=== PATIENT | female | born 1985 | race Caucasian/White ===

== ENCOUNTER 2019-08-07 06:36 | Emergency (ER) | payer BC, SELFPAY ==
--- NOTE | ~2019-08-07 | CT_ITS ---
EXAMINATION: CT abdomen pelvis w con DATE: 08/07/2019 07:59 INDICATION: Low abdominal pain. Nausea, vomiting, and diarrhea. TECHNIQUE: Computed tomography (CT) of the abdomen and pelvis was performed with 100 mL Omnipaque 350 intravenous contrast. Automated exposure control and iterative reconstruction technique were employe d. The dose-length product was 320.03 mGy-cm. COMPARISON: None. FINDINGS: The visualized portions of the lung bases demonstrate minimal atelectasis. There are small pleural effusions. The heart size is normal. No pericardial effusion. The liver demonstrates periport al edema. The gallbladder, spleen, pancreas, adrenal glands, and kidneys are normal. The uterus is en larged and contains multiple fibroids. There is wall thickening of the ascending colon, descending co zunilda, and rectosigmoid, consistent with colitis. There are no dilated loops of bowel. There are no pat hologically enlarged lymph nodes. There is a small volume of ascites. There is mild lumbar spondylosi s. IMPRESSION: 1. Colitis. 2. Small volume of ascites. 3. Small pleural effusions. 4. Uterine fibroids. Reviewed, dictated and finalized at location A.
--- NOTE | 2019-08-07 06:38 | ED.ABDPAIN ---
HPI - Abdominal Pain General Chief Complaint: Abdominal Pain Stated Complaint: stomach issue Time Seen by Provider: 08/07/19 06:38 Source: patient Mode of arrival: ambulatory Limitations: no limitations History of Present Illness HPI narrative: Patient is a 33-year-old female who presents for evaluation of abdominal pain. Pain is located throughout the patient's abdomen, currently dull, aching in nature, mild. Patient does report intermittent abdominal pain over the past 48 to 72 hours, without much improvement which is why she sought care in the apartment. Patient has been nauseated and vomiting. She reports diarrhea which is green sometimes have spots of red in it. She denies any black or tarry stool. Patient also reports constipation and having to strain to have a bowel movement. Patient denies any urinary symptoms. No history of chronic abdominal pain. Patient's significant other has been well without symptoms. Patient does report mild abdominal distention. Related Data Home Medications Medication Instructions Recorded Confirmed norethindrone-e.estradiol-iron [Lo tablet 08/07/19 Loestrin Fe] Allergies Allergy/AdvReac Type Severity Reaction Status Date / Time No Known Allergies Allergy Verified 08/07/19 06:53 Review of Systems Review of Systems: Narrative: CONSTITUTIONAL: Reports subjective fever ENT: Denies rhinorrhea, congestion, sore throat, or otalgia. CARDIOVASCULAR: Denies chest pain, palpitations, or edema. RESPIRATORY: Denies cough or dyspnea. GASTROINTESTINAL: Reports abdominal pain, nausea, vomiting, diarrhea GENITOURINARY: Denies dysuria or hematuria. SKIN: Denies rash or itching. MUSCULOSKELETAL: Denies back pain, joint pain, or myalgia. NEUROLOGIC: Denies headache, numbness, or weakness. PSYCHIATRIC: Reports history of anxiety PMFSH Past Medical History Medical History (Updated 08/07/19 @ 09:09 by Susanne Manzo MD) Anxiety Uterine fibroid Surgical History Surgical History (Updated 08/07/19 @ 06:52 by Susanne Manzo MD) History of laparotomy Social History Social History Smoking status: Never smoker Alcohol intake: current Exam Narrative: Exam Narrative: GENERAL: Awake, alert, conversant HEAD: Normocephalic, atraumatic. EYES: PERRLA and EOMI. ENT: Nares clear, no rhinorrhea or epistaxis. Mucous membranes moist. NECK: Supple. CHEST: No respiratory distress, breathing even and non labored HEART: Regular rate, sinus rhythm ABDOMEN:Non distended, mild tenderness, lower abdomen, non rigid, no guarding, no epigastric or RUQ tenderness EXTREMITIES: Normal range of motion. No edema. SKIN: Warm, dry, no rash. NEURO:No focal deficits. Alert and oriented x3 Course Vital Signs Vital signs: Vital Signs Temperature 37.1 C 08/07/19 06:49 Pulse Rate 90 08/07/19 06:49 Respiratory Rate 14 08/07/19 06:49 Blood Pressure 109/76 08/07/19 06:49 Pulse Oximetry 100 08/07/19 06:49 Temperature 37.1 C 08/07/19 06:49 Pulse Rate 69 08/07/19 08:11 Respiratory Rate 18 08/07/19 08:11 Blood Pressure 102/65 08/07/19 08:11 Pulse Oximetry 100 08/07/19 08:11 MDM - Abdominal Pain MDM Narrative Medical decision making narrative: Patient presented for evaluation of abdominal pain. At the time of initial assessment, ABCs are intact and vital signs are stable. Physical exam is notable for mild lower abdominal tenderness. IV access obtained and labs are drawn. Laboratory results show no severe leukocytosis. Very mild anemia. Very mild hypokalemia. No UTI. No elevation in lipase that be consistent with pancreatitis. CT scan with evidence of colitis. Patient also has some small pleural effusions evidence of ascites which is very abnormal. She has no history of liver pathology, no transaminitis, no respiratory distress. Spoke with the primary care physician regarding these findings so that the patien
[2019-08-07 06:49] VITALS: BP 109/76; PULSE 90; RESP 14; TEMP 37.1; O2SAT 100
[2019-08-07 06:59] LABS: Basophils Percent Auto 0.6 % (0.2-1.2); Eosinophils Percent Auto 0.2 % (0-4.4); Hematocrit 35.2 % (37.0-47.0); Hemoglobin 11.6 g/dL (12.0-15.0); Immature Granulocyte Absolute 0.01 K/mm3 (0.00-0.031); Immature Granulocyte Percent A 0.2 % (0-0.5); Lymphocytes Absolute Auto 0.81 K/mm3 (0.9-3.2); Lymphocytes Percent Auto 15.8 % (18.3-44.2); Mean Corpuscular Hemoglobin 30.3 pg (26-34); Mean Corpuscular Volume 91.9 fl (80-100); Mean Platelet Volume 10.2 fl (7.4-10.4); Monocytes Absolute Auto 0.4 K/mm3 (0.1-0.6); Monocytes Percent Auto 7.8 % (2.6-8.5); Neutrophils Absolute Auto 3.9 K/mm3 (1.3-6.7); Neutrophils Percent Auto 75.4 % (45.5-73.1); Platelet Count Result 140 k/mm3 (150-375); Red Blood Count 3.83 M/mm3 (4.2-5.4); Red Cell Distribution Width 12.7 % (11.5-14.5); White Blood Count 5.1 K/mm3 (4.5-10.0)
--- NOTE | 2019-08-07 07:01 | PC.NURSE ---
pt in restroom to attempt for urine sample
[2019-08-07] MEDS: SODIUM CHLORIDE 0.9% IV 1,000 ML 999 ML IV CONT (07:08)
[2019-08-07] MEDS: ONDANSETRON INJ 4 MG/2 ML VIAL IV PUSH (07:09)
[2019-08-07 07:11] LABS: Alanine Aminotransferase 11 U/L (4-35); Albumin Level 4.1 g/dL (3.5-5.1); Alkaline Phosphatase 50 U/L (38-126); Aspartate Amino Transferase 17 U/L (14-36); Bilirubin,Total 0.4 mg/dL (0.2-1.3); Blood Urea Nitrogen 8 mg/dL (7-17); Calcium 8.6 mg/dL (8.4-10.2); Carbon Dioxide 26 mmol/L (22-30); Chloride 103 mmol/L (98-107); Estimated Glomerular Filt Rate > 60; Glucose 109 mg/dL (65-105); Lipase 18 U/L (23-300); Sodium 137 mmol/L (137-145)
[2019-08-07] MEDS: DICYCLOMINE HCL INJ 20 MG/2 ML VIAL IM (07:13)
[2019-08-07 07:26] LABS: Add Urine Microscopic? YES; Appearance Urine Clear (Clear); Bilirubin Urine Negative (Negative); Blood Urine 2+ (Negative); Color Urine Yellow (Yellow); Glucose Urine UA Negative (Negative); Ketones Urine Negative (Negative); Leukocyte Esterase Ur Negative LEU/UL (Negative); Mucus Urine Moderate /lpf; Nitrate Urine Negative (Negative); Protein Urine 2+ mg/dL (Negative); Specific Grav Ur 1.018 (1.001-1.035); Squamous Epithelial Cell Urine Moderate /hpf (Few); Urobilinogen Urine Negative mg/dL (<2.0)
[2019-08-07 08:11] VITALS: BP 102/65; PULSE 69; RESP 18; O2SAT 100
[2019-08-07] MEDS: POTASSIUM CHLORIDE 20 MEQ PACKET (FOR LIQUID) 40 MEQ PO (09:15)
[2019-08-07 09:18] VITALS: BP 101/66; PULSE 74; RESP 18; TEMP 38.7; O2SAT 100
== END 2019-08-07 09:29 | disposition home or self-care (01) ==
PROVIDERS: Emergency Provider Emergency Medicine; PCP Family Medicine
DX: K52.9 Noninfective gastroenteritis and colitis, unspecified (principal); D25.9 Leiomyoma of uterus, unspecified
CPT/HCPCS: 36415; 74177; 80053; 81001; 81025; 83690; 85025; 96361; 96365; 96372; 96375; 99284; A9270; J0131; J0500; J2405; J7030; Q9967

== ENCOUNTER 2019-09-03 15:14 | Outpatient (CLI) | payer BC, SELFPAY ==
--- NOTE | ~2019-09-03 | US_ITS ---
EXAMINATION: US pelvic complete EXAM DATE: 09/03/2019 15:59 INDICATION: Fibroid. TECHNIQUE: Pelvic transabdominal sonogram was performed. There are multiple grayscale and Doppler im ages available for interpretation. There is no prior study for comparison. Correlation was made with CT scan 08/07/2019. FINDINGS: Uterus measures 10.4 x 5.2 x 7.2 cm, with fibroid(s). Largest is identified posteriorly, m easuring 4.4 x 4.1 x 4.0 cm. Uterus is retroverted. Endometrial stripe measures 6 mm, within normal l imits. There is no free pelvic fluid. Right adnexa: The ovary measures 3.6 x 2.7 x 2.5 cm and is morphologically normal. Ovarian vascular f low confirmed. Left adnexa: The ovary measures 4.3 x 2.6 x 2.8 cm and is morphologically normal. Ovarian vascular fl ow confirmed. IMPRESSION: 1. Fibroid uterus. Reviewed, dictated and finalized at location A. IMPRESSION: 1. Fibroid uterus.
[2019-09-03 16:34] LABS: Basophils Percent Auto 0.5 % (0.2-1.2); Eosinophils Absolute Auto 0.1 K/mm3 (0-0.3); Eosinophils Percent Auto 1.8 % (0-4.4); Hematocrit 37.9 % (37.0-47.0); Hemoglobin 12.2 g/dL (12.0-15.0); Immature Granulocyte Absolute 0.01 K/mm3 (0.00-0.031); Immature Granulocyte Percent A 0.2 % (0-0.5); Lymphocytes Absolute Auto 2.06 K/mm3 (0.9-3.2); Mean Corpuscular HGB Conc 32.2 g/dl (32-36); Mean Corpuscular Hemoglobin 30.4 pg (26-34); Mean Corpuscular Volume 94.5 fl (80-100); Mean Platelet Volume 10.1 fl (7.4-10.4); Monocytes Absolute Auto 0.5 K/mm3 (0.1-0.6); Neutrophils Absolute Auto 3.5 K/mm3 (1.3-6.7); Neutrophils Percent Auto 56.5 % (45.5-73.1); Platelet Count Result 193 k/mm3 (150-375); Red Blood Count 4.01 M/mm3 (4.2-5.4); Red Cell Distribution Width 12.7 % (11.5-14.5); White Blood Count 6.3 K/mm3 (4.5-10.0)
[2019-09-03 16:46] LABS: Alanine Aminotransferase 13 U/L (4-35); Albumin Level 4.6 g/dL (3.5-5.1); Alkaline Phosphatase 42 U/L (38-126); Aspartate Amino Transferase 19 U/L (14-36); Bilirubin,Total 0.2 mg/dL (0.2-1.3); Blood Urea Nitrogen 11 mg/dL (7-17); Calcium 9.1 mg/dL (8.4-10.2); Carbon Dioxide 26 mmol/L (22-30); Chloride 101 mmol/L (98-107); Estimated Glomerular Filt Rate > 60; Glucose 82 mg/dL (65-105); Potassium 3.9 mmol/L (3.4-5.0); Sodium 136 mmol/L (137-145)
== END 2019-09-03 15:15 | disposition home or self-care (01) ==
LOC: ANHIMG 15:18
PROVIDERS: PCP Family Medicine; Visit Provider Family Medicine
DX: D25.9 Leiomyoma of uterus, unspecified (principal); K52.9 Noninfective gastroenteritis and colitis, unspecified; Z86.018 Personal history of other benign neoplasm
CPT/HCPCS: 36415; 76856; 80053; 84443; 85025

== ENCOUNTER 2021-05-20 10:55 | Outpatient (CLI) | payer OTHER, SELFPAY ==
--- NOTE | ~2021-05-20 | US_ITS ---
EXAMINATION: US OB <=14 wk fetus w TV DATE: 05/20/2021 12:27 INDICATION: First trimester dating and viability assessment TECHNIQUE: Real-time pelvic transabdominal and transvaginal ultrasound was performed. COMPARISON: 09/03/2019 FINDINGS: The uterus measures 12.1 x 8.9 x 8.6 cm. There is a small subchorionic hematoma. Uterine fi broids are noted which measure 1.6 x 1.6 x 1.5 cm and 2.2 x 1.9 x 2.3 cm. There is an intrauterine g estational sac. A yolk sac is identified. heart motion is identified measuring 111 beats per mi nute (bpm) by M-mode Doppler. The crown rump length measures 4 mm , which correlates with an es timated gestational age of 6 weeks and 0 day(s) (+/-) 4 day(s). The right ovary measures 3.3 x 2.3 x 1.8 cm. The left ovary measures 3.9 x 2.3 x 2.0 cm. There is nor mal vascular flow in the ovaries. There is no free fluid in the pelvis. IMPRESSION: 1. Live intrauterine with an estimated gestational age of 6 weeks and 0 day(s) (+/-) 4 day( s) and an estimated delivery date of 01/13/2022. Reviewed, dictated and finalized at location F. A CONSULTANT IMPRESSION: 1. Live intrauterine with an estimated gestational age of 6 weeks and 0 day(s) (+/-) 4 day(s) and an estimated delivery date of 01/13/2022.
== END 2021-05-20 10:56 | disposition home or self-care (01) ==
LOC: ANHIMG 10:58
PROVIDERS: PCP Family Medicine; Visit Provider Student in an Organized Health Care Education/Training Program
DX: Z34.91 Encounter for supervision of normal pregnancy, unspecified, first trimester (principal); Z3A.01 Less than 8 weeks gestation of pregnancy
CPT/HCPCS: 76801; 76817

== ENCOUNTER → 2021-06-21 09:09 | Outpatient (REF) | payer OTHER, SELFPAY | LOC: ANHLAB 09:09 | PROVIDERS: PCP Nurse Practitioner Family; Visit Provider Nurse Practitioner | DX: R22.9 Localized swelling, mass and lump, unspecified (principal) | CPT/HCPCS: 88304 ==

== ENCOUNTER 2021-09-06 04:31 | Observation (INO) | payer OTHER, SELFPAY ==
[2021-09-06 04:52] VITALS: BP 109/64; PULSE 88
--- NOTE | 2021-09-06 05:04 | PC.NURSE ---
[id number]- called Dr. La- informed of pt admission for lower abdominal pain that started Sunday. she traveled via airplane Sunday and came back late last night. she states that across lower abd she feels a pulling sensation. no bleeding. pt states that she has fibroids that have grown during this . orders received to collect UA, TOCO, and cervical exam. heart tones doppled at 150-155.
[2021-09-06 05:32] LABS: Add Urine Microscopic? YES; Appearance Urine Clear (Clear); Bilirubin Urine 1+ (Negative); Blood Urine Negative (Negative); Color Urine Yellow (Yellow); Glucose Urine UA Negative (Negative); Ketones Urine Negative (Negative); Leukocyte Esterase Ur Negative LEU/UL (NEGATIVE); Nitrate Urine Negative (Negative); Protein Urine Negative (Negative); Urobilinogen Urine 0.2 mg/dL (<2.0)
[2021-09-06 05:34] LABS: Bacteria Urine Trace /hpf; Mucus Urine Rare /lpf; RBC Urine 0-2 /hpf (0-2); Squamous Epithelial Cell Urine Many /hpf (Few); WBC Urine 0-3 /hpf (0-3)
--- NOTE | 2021-09-06 05:49 | PC.NURSE ---
called Dr. La- updated on pt. UA results negative. - cervical exam closed. - irritability noted with TOCO. pt not feeling contractions. pt PO hydrating while here. d/c orders received. pt has ov this .
[2021-09-06 05:57] VITALS: BMI 29.5
--- NOTE | 2021-09-27 06:59 | PM.OBTRLD ---
OB - Triage/Final Diagnosis Visit Information Date of evaluation: 09/06/21 Reason for evaluation: other (lower abdominal pain) Comments/Additional reasons for admission: I have assessed the risk for this patient, Dari Alicea Leeanna, and determined that she would benefit from observation care. Evaluation Cervical effacement (%): 0 Laboratory results: Laboratory Tests 09/06/21 05:22 Urine Color Yellow Urine Appearance Clear Urine pH 6.0 Ur Specific [place] 1.020 Urine Protein Negative Urine Glucose (UA) Negative Urine Ketones Negative Ur Blood (Man) Negative Urine Nitrate Negative Urine Bilirubin 1+ H Urine Urobilinogen 0.2 Ur Leukocyte Esterase Negative Urine RBC 0-2 Urine WBC 0-3 Ur Squamous Epith Cells Many H Urine Bacteria Trace Urine Mucus Rare Final Diagnosis (1) Uterine irritability: Code(s): N85.8 - Other specified noninflammatory disorders of uterus Status: Acute
== END 2021-09-06 06:11 | disposition home or self-care (01) ==
PROVIDERS: Admitting Provider Obstetrics & Gynecology; PCP Nurse Practitioner Family; Visit Provider Obstetrics & Gynecology
DX: O26.899 Other specified pregnancy related conditions, unspecified trimester (principal); R10.30 Lower abdominal pain, unspecified; Z3A.00 Weeks of gestation of pregnancy not specified
CPT/HCPCS: 81001; G0378; G0379

== ENCOUNTER 2021-12-31 02:46 | Inpatient (IN) | payer OTHER, SELFPAY ==
[2021-12-31] VITALS (158 sets, daily range): BP systolic 89–136; BP diastolic 37–107; PULSE 46–139; RESP 15–16; TEMP 36–37.2; O2SAT 83–100; BMI 35.1
--- NOTE | 2021-12-31 03:26 | LDADM ---
This patient, Dari Durán, was admitted to Labor/Delivery/Recovery 105 on 12/31/21 at 02:46. Plans for labor, pain management and were discussed with patient. Patient/family oriented to hospital policies and general routines including ID bracelet, bed and alarms, visiting hours, pain management, procedures, bathroom and other care routines, personal items, smoking policy, room service/diet and guest tray routines, security routines, and visiting hours. Patient/Family are encouraged to report perceived risks to care and to ask questions if they do not understand what they are told or what they should do. See OBIX for further documentation.
[2021-12-31 03:48] LABS: Basophils Percent Auto 0.3 % (0.2-1.2); Eosinophils Absolute Auto 0.1 K/mm3 (0-0.3); Eosinophils Percent Auto 0.8 % (0-4.4); Hematocrit 33.6 % (37.0-47.0); Hemoglobin 11.2 g/dL (12.0-15.0); Immature Granulocyte Absolute 0.05 K/mm3 (0.00-0.031); Immature Granulocyte Percent A 0.5 % (0-0.5); Lymphocytes Absolute Auto 1.38 K/mm3 (0.9-3.2); Lymphocytes Percent Auto 14.5 % (18.3-44.2); Mean Corpuscular HGB Conc 33.3 g/dl (32-36); Mean Platelet Volume 10.9 fl (7.4-10.4); Monocytes Absolute Auto 0.6 K/mm3 (0.1-0.6); Monocytes Percent Auto 6.7 % (2.6-8.5); Neutrophils Absolute Auto 7.4 K/mm3 (1.3-6.7); Neutrophils Percent Auto 77.2 % (45.5-73.1); Platelet Count Result 183 k/mm3 (150-375); Red Blood Count 3.86 M/mm3 (4.2-5.4); Red Cell Distribution Width 16.9 % (11.5-14.5); White Blood Count 9.5 K/mm3 (4.5-10.0)
[2021-12-31] MEDS: LACTATED RINGERS 1,000 ML 125 ML IV CONT ×4 (05:56→20:57)
[2021-12-31] MEDS: OXYTOCIN 30 UNITS/NS 500 ML 30 UNITS/500 ML BAG 6 UNITS IV CONT (05:56)
--- NOTE | 2021-12-31 09:07 | PM.IMHP ---
H&P: HPI History of Present Illness Date/Time: 12/31/21 09:07 Chief Complaint: Leaking of fluid Narrative: She is 40 2 by edc of 01/11/22 by LMP 04/06/22 consistent with 6 week ultrasound. She presented with complaints of leaking of fluid, clear at 1245. Occasional contractions. PNC significant for large fibroid uterus, marginal cord insertion on ultrasound in September. Also LGA 94% by last ultrasound. Labs reviewed. GBS neg. Review of Systems Review of Systems: All systems reviewed & are unremarkable except as noted in HPI and below Constitutional: Constitutional: Reports no additional constitutional complaints and Denies headache(s) Eyes: Eyes: Denies spots in vision ENT: Reports system reviewed and no additional complaints, except as documented and Denies headache(s) Cardiovascular: Cardiovascular: Denies chest pain and Denies dyspnea Respiratory: Respiratory: Denies dyspnea Gastrointestinal: Gastrointestinal: Reports no additional gastrointestinal complaints Genitourinary: Genitourinary: Reports amenorrhea Musculoskeletal: Musculoskeletal: Reports no additional musculoskeletal complaints Integumentary/Breasts: Skin/Breast: Denies breast mass and Denies rash Neurologic: Denies headache(s) Psychiatric: Psychiatric: Reports no additional psychiatric complaints PMFSH Past Medical History Medical History Acne (~2014) Anxiety Normal Pap smear (~05/13/20) Uterine fibroid (~2013) Surgical History Surgical History History of laparotomy (~06/18/13) ~ 15 cm fibroid removed while in [place] Family History Family History Father Hypertension Diabetes mellitus Social History Social History Smoking status: Never smoker Second hand tobacco smoke exposure: No Alcohol intake: never Substance use: never 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[employer] Gender identity (if verbalized by the patient): Female Spiritual care concerns: No Meds Home Medications and Allergies Home Medications Medication Instructions Recorded Confirmed Type prenat.vits,char,uzw-mvzf-mdwdo 1 tablet PO DAILY 05/13/20 04/28/21 History cholecalciferol (vitamin D3) 50 50 mcg PO DAILY 05/31/20 04/28/21 History mcg (2,000 unit) capsule buspirone 5 mg tablet See Rx Instructions .Route 01/27/21 04/28/21 Rx .COMPLEX #60 tabs cetirizine 10 mg capsule (Zyrtec) 10 mg PO DAILY PRN 06/07/21 History ferrous sulfate 325 mg (65 mg 325 mg PO DAILY 06/14/21 History iron) tablet clindamycin phosphate 1 % topical See Rx Instructions .Route 11/18/21 Rx swab .COMPLEX #60 swabs Allergies Allergy/AdvReac Type Severity Reaction Status Date / Time No Known Allergies Allergy Verified 12/27/21 08:55 Vital Signs Vital Signs - 24 hr 12/31/21 03:26 12/31/21 05:58 12/31/21 06:00 Temperature Pulse Rate 109 H 105 H Blood Pressure 103/72 108/66 Pulse Oximetry Oxygen Delivery Room Air 12/31/21 06:25 12/31/21 06:15 12/31/21 06:30 Temperature 97 F L Pulse Rate 86 Blood Pressure 119/74 Pulse Oximetry 100 Oxygen Delivery 12/31/21 07:00 12/31/21 07:30 12/31/21 08:06 Temperature 96.9 F L Pulse Rate 84 87 Blood Pressure 108/69 106/80 Pulse Oximetry Oxygen Delivery 12/31/21 08:08 12/31/21 08:31 Temperature Pulse Rate 106 H 81 Blood Pressure 121/75 107/79 Pulse Oximetry Oxygen Delivery Exam Const: General: no acute distress Eyes: General: appearance normal, both eyes and all related structures Neck: Neck: normal visual inspection Resp: Effort & Inspection: normal respiratory effort Auscultation: clear to auscultation bilaterally Cardio: Rate: regular rate Rhythm: regular rhythm GI: Other: Gravid no fundal tenderness no right u
--- NOTE | 2021-12-31 11:16 | WPDANESEPP ---
Anes - Eval Pre Procedure Procedure: labor epidural Date/Time: 12/31/21 11:16 Surgeon: komal Preop Diagnosis: pain during labor Pre Op Diagnosis: SROM Patient Data Age: 36 Gender: F Height: 1.6 m Weight: 90 kg Last Vital Signs Temp 36.1 C L 12/31/21 10:00 Pulse 91 12/31/21 11:15 BP 109/55 L 12/31/21 11:15 Pulse Ox 100 12/31/21 06:25 O2 Del Method Room Air 12/31/21 03:26 Allergies Allergy/AdvReac Type Severity Reaction Status Date / Time No Known Allergies Allergy Verified 12/27/21 08:55 Home Medications Medication Instructions Recorded Confirmed Type prenat.vits,char,enr-bhxp-xwlya 1 tablet PO DAILY 05/13/20 04/28/21 History cholecalciferol (vitamin D3) 50 50 mcg PO DAILY 05/31/20 04/28/21 History mcg (2,000 unit) capsule buspirone 5 mg tablet See Rx Instructions .Route 01/27/21 04/28/21 Rx .COMPLEX #60 tabs cetirizine 10 mg capsule (Zyrtec) 10 mg PO DAILY PRN 06/07/21 History ferrous sulfate 325 mg (65 mg 325 mg PO DAILY 06/14/21 History iron) tablet clindamycin phosphate 1 % topical See Rx Instructions .Route 11/18/21 Rx swab .COMPLEX #60 swabs Laboratory Tests 12/31/21 12/31/21 12/31/21 03:14 03:14 03:14 WBC 9.5 K/mm3 K/mm3 (4.5-10.0) RBC 3.86 M/mm3 L M/mm3 (4.2-5.4) Hgb 11.2 g/dL L g/dL (12.0-15.0) Hct 33.6 % L % (37.0-47.0) MCV 87.0 fl fl (80-100) MCH 29.0 pg pg (26-34) MCHC 33.3 g/dl g/dl (32-36) RDW 16.9 % H % (11.5-14.5) Plt Count 183 k/mm3 k/mm3 (150-375) MPV 10.9 fl H fl (7.4-10.4) Immature Gran % (Auto) 0.5 % % (0-0.5) Neut % (Auto) 77.2 % H % (45.5-73.1) Lymph % (Auto) 14.5 % L % (18.3-44.2) [place] % (Auto) 6.7 % % (2.6-8.5) Eos % (Auto) 0.8 % % (0-4.4) Baso % (Auto) 0.3 % % (0.2-1.2) Lymph # (Auto) 1.38 K/mm3 K/mm3 (0.9-3.2) [place] # (Auto) 0.6 K/mm3 K/mm3 (0.1-0.6) Eos # (Auto) 0.1 K/mm3 K/mm3 (0-0.3) Baso # (Auto) 0.0 K/mm3 K/mm3 (0.0-0.1) Abs Immat Gran (auto) 0.05 K/mm3 H K/mm3 (0.00-0.031) Absolute Neuts (auto) 7.4 K/mm3 H K/mm3 (1.3-6.7) Absolute Nucleated RBC 0.0 K/mm3 K/mm3 (0.0-0.012) Nucleated RBC % 0.0 % % (0.0-0.2) RPR Pending Blood Type O Positive Antibody Screen Negative Patient hx anesthesia problems: none Family hx anesthesia problems: none Results Review: All pre-operative results and documents have been reviewed as part of the pre-operative evaluation. 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
--- NOTE | 2021-12-31 12:20 | PM.OBPNLAB ---
Pain Control Date/time seen: 12/31/21 0900 fht 145, ctx q 2-4, isolated deceleration, cat 2. Continue pitocin.
[2021-12-31] MEDS: AMPICILLIN 2 GM/NS 100 ML 2 GM/100 ML BAG IVPB (18:53)
[2021-12-31] MEDS: SODIUM CHLORIDE 0.9% IV 300 ML 600 ML I-UTERINE (19:24)
[2021-12-31] MEDS: OXYTOCIN 30 UNITS/NS 500 ML 30 UNITS/500 ML BAG 125 UNITS IV CONT (22:18)
[2021-12-31] MEDS: miSOPROStol 200 MCG TABLET 800 MCG RECTAL (22:22)
--- NOTE | 2021-12-31 22:33 | P.PCNOB_ITS ---
OB - Delivery Note Procedure Delivery date: 12/31/21 Procedure: Patient is a 36-year-old now who presented to labor and delivery on the manager testing of 12/31/2021 at 38 weeks 3 days gestation with complaints of leakage of fluid at approximately 12:45 a.m. Patient was noted to be grossly ruptured at time of presentation and was admitted to labor and delivery. Induction of labor was started with Pitocin. Pitocin was slowly titrated throughout the morning. Patient made little cervical change for several hours. An IUPC was placed for monitoring and pitocin was continued. She eventually began to make cervical change. Patient became uncomfortable and requested an epidural for pain management which was placed without difficulty. Patient continued to make slow, progressive cervical change. Antibiotics were started for prolonged rupture of membranes. Deep variable decelerations were noted on EFM. An amnioinfusion was started. An FSE was placed as well. Patient progressed to fully dilated at 7:57 p.m. Patient was encouraged to push and found to be pushing well. She was prepped and draped for delivery. At 9:51 p.m., patient delivered infant head atraumatically and without difficulty in KRISTOFER presentation. Occiput restituted to maternal left side. With subsequent push, the 's neck, shoulders, and rest of body delivered without difficulty. was weakly crying. 's nose and mouth were suctioned with bulb suction. Infant was placed on maternal abdomen where care was assumed by awaiting nursing staff. Delayed cord clamping was performed for approximately 60 seconds. The cord was clamped and cut. A segment of cord was collected for cord gases. Cord blood was collected. The placenta was delivered spontaneously and intact. Uterine fundus was noted to be firm with massage. On inspection, a first-degree perineal laceration as well as a right labial laceration were noted. These lacerations were repaired with 2-0 and 3-0 Vicryl in the usual fashion. Excellent hemostasis was noted. Rest of vaginal tissue was, however, edematous. Straight catheterization was performed with return of approximately 50 cc of concentrated urine. Due to large fibroid uterus, Cytotec 800 mcg [place]. was administered prophylactically. Estimated blood loss for entire delivery was 350 cc. The was a live-born female , Apgars 8 and 9, weighing 7 lbs. 7 oz. Both mother and baby doing well at end of delivery. Induction method: Per Pitocin Protocol Delivery monitor: External FHT, External Uterine, Internal FHT and Internal Uterine Route of delivery: Laceration Description: Perineal - 1st Degree and Labial (right) Delivery repair: vicryl (2-0 and 3-0) Specimen: Yes (cord blood and cord gases) Quantitative Blood Loss (ml): 350 Anesthesia type: Epidural Disposition: Floor Complications: No immediate complications Baby Date of : 12/31/21 Time of : 21:51 Weeks of gestation at delivery: 38 (38.3) Infant gender: Female Weight (pounds): 7 Weight (ounces): 7 presentation: vertex position: Left Occiput Anterior Placenta delivery description: Spontaneous Cord Vessel Description: 3 Vessels and Delayed Cord Clamping (x60s) score one minute: 8 score five minutes: 9 AMG Delivery Billing Delivery Delivery: Delivery Charge
[2021-12-31] MEDS: IBUPROFEN 600 MG TABLET PO (23:10)
[2021-12-31] MEDS: BENZOCAINE 20% AER SPR (*SP) 56 GM CAN 1 SPRAY TOPICAL (23:12)
[2021-12-31] MEDS: WITCH HAZEL 40 PADS 1 PAD TOPICAL (23:12)
[2022-01-01 00:40] VITALS: BP 121/69; PULSE 86; RESP 18; TEMP 37; O2SAT 96
[2022-01-01] MEDS: ACETAMINOPHEN 325 MG TABLET 650 MG PO ×3 (01:10→15:49)
--- NOTE | 2022-01-01 01:40 | OBPPTRN ---
01/01/22 at 0028 Patient transferred to post room #288 with baby. Support person present. Oriented to unit, room, information board, rooming in, admission packet and security measures. Patient verbalizes understanding.
[2022-01-01 03:30] VITALS: BP 108/60; PULSE 91; RESP 18; TEMP 36.8; O2SAT 96
[2022-01-01] MEDS: IBUPROFEN 600 MG TABLET PO ×3 (04:52→19:11)
[2022-01-01 05:01] LABS: Hematocrit 33.4 % (37.0-47.0); Hemoglobin 10.6 g/dL (12.0-15.0)
[2022-01-01] MEDS: MULTIVIT/MIN/PREN/FOL AC/IRON TABLET 1 TAB PO (07:58)
[2022-01-01] MEDS: DOCUSATE SODIUM 100 MG CAPSULE PO ×2 (07:58→15:49)
[2022-01-01 08:00] VITALS: BP 118/79; PULSE 67; RESP 18; TEMP 36.6; O2SAT 99
--- NOTE | 2022-01-01 08:40 | PC.NURSE ---
Breast pump provided due to ineffective feeding with a nipple shield. Instructions given on cleaning, care, usage, that there should be no pain, pumping schedule for milk production, collection, and storage of human milk. Parents are encouraged to record pumping schedule on the [feeding sheet/pumping log]. Patient was assessed for correct placement, flange size, to pump for comfort and nipple stretching/stimulation for adequate milk production every 3 hours (8 times in 24 hours). Mother voiced understanding of the education shared along with mom and baby guide for additional resource information.
--- NOTE | 2022-01-01 09:57 | PM.OBPNVD ---
OB - PN: Subj Subjective Date/time seen: 01/01/22 09:57 Interval history: Perineal pain moderate. She is using ice pack. Patient comments: tolerating diet and other (Decreasing lochia.) baby status: doing well and nursing well feeding status: breast and bottle feeding OB - PN: Obj Data Labs CBC & Chem 7: 01/01/22 04:56 Labs: Laboratory Results - last 24 hr 01/01/22 04:56 Hgb 10.6 L Hct 33.4 L OB - PN A/P Plan day: 1 Plan: routine care Comments: Patient doing well. Offered stronger analgesic if pain persist at moderate. Recommend sitz bath. Routine care. Time Spent With Patient Time: Total time spent is greater than 50% in coordination of care (as documented) at patient's floor/unit and/or counseling patient: Exam Const: General: comfortable and no acute distress Eyes: General: appearance normal, both eyes and all related structures Resp: Effort & Inspection: normal respiratory effort Extrem: General: normal to inspection and no calf tenderness Psych: Affect: normal affect Other: Abd: fundus firm below umbilicus, nontender Perineum: healing Ext: nontender
[2022-01-01 12:01] VITALS: BP 119/78; PULSE 98; RESP 16; RESP 18; TEMP 36.8; O2SAT 100
[2022-01-01 15:50] VITALS: BP 127/79; PULSE 91; RESP 18; TEMP 36.9; O2SAT 99
[2022-01-01 19:30] VITALS: BP 123/78; PULSE 89; RESP 18; TEMP 36.8; O2SAT 99
[2022-01-02] MEDS: IBUPROFEN 600 MG TABLET PO ×2 (02:46→08:58)
[2022-01-02] MEDS: ACETAMINOPHEN 325 MG TABLET 650 MG PO (02:46)
[2022-01-02 08:25] VITALS: BP 115/67; PULSE 85; RESP 18; TEMP 36.3; O2SAT 98
[2022-01-02 09:17] LABS: Rapid Plasma Reagin Non-Reactive (NonReactive)
--- NOTE | 2022-01-02 09:39 | PM.OBPNVD ---
OB - PN: Subj Subjective Date/time seen: 01/02/22 09:39 Interval history: Perineal pain moderate. She is using ice pack. Patient comments: pain well controlled, tolerating diet and other (Decreasing lochia.) baby status: doing well and nursing well feeding status: exclusively breast feeding OB - PN: Obj Data Labs CBC & Chem 7: 01/01/22 04:56 Labs: Laboratory Results - last 24 hr 12/31/21 03:14 RPR Non-reactive OB - PN A/P Plan day: 2 Plan: discharge home and other Comments: Patient doing well. Follow up 4-6 weeks. Discharge instructions provided. Time Spent With Patient Time: Total time spent is greater than 50% in coordination of care (as documented) at patient's floor/unit and/or counseling patient: Time with patient: less than 15 minutes Review of Systems Review of Systems: All systems reviewed & are unremarkable except as noted in HPI and below Constitutional: Constitutional: Reports no additional constitutional complaints Cardiovascular: Cardiovascular: Denies dyspnea Respiratory: Respiratory: Denies dyspnea Gastrointestinal: Gastrointestinal: Reports no additional gastrointestinal complaints and Denies abdominal pain Genitourinary: Genitourinary: Reports no additional female genitourinary complaints Exam Psych: Affect: normal affect Other: Abd: fundus firm, nontender Ext: nontender
--- NOTE | 2022-01-02 09:41 | PM.OBDSVD ---
DS: Admitting Diagnosis Discharge Date 01/02/2022 Admitting Diagnosis Spontaneous rupture of membranes DS: Discharge Diagnosis Discharge Diagnosis (1) Spontaneous rupture of membranes: Status: Acute (2) Delivery normal: Code(s): O80 - Encounter for full-term uncomplicated delivery Status: Acute OB - DS: Summary Hospital Course Hospital Course: Patient admitted for spontaneous rupture of membranes. She had pitocin augmentation. She had a vaginal delivery. she did well. On PPD 1 she was ambulating. Adequate pain control with medication. On day 2. She was doing well. Ambulating well. Adequate pain control. Decreasing lochia. Baby doing well. She was discharged to home with precautions on day 2. OB Procedures : Ultrasound OB Procedures Intrapartum: Spontaneous Vag Delivery OB Procedures: : None Peripartum Data Delivery Method: Natural Vaginal Laceration Description: Perineal - 1st Degree complications: none Status at Discharge Functional status at discharge: independent ambulation Time Spent with Patient Time attestation: Total time spent providing and/or coordinating discharge services: Exam Const: General: cooperative, comfortable and no acute distress Orientation/consciousness: oriented to person, oriented to place and oriented to time HENMT: General nose exam: Normal external nose present Eyes: General: appearance normal, both eyes and all related structures Resp: Effort & Inspection: normal respiratory effort GI: Inspection: normal to inspection Other: uterus firm nontender : External Female Exam: normal external appearance Skin: General skin exam: normal color Neuro: General: oriented to person, oriented to place and oriented to time Extrem: General: normal to inspection and no calf tenderness Psych: Appearance: grossly normal Mental Status: mental status grossly normal Affect: normal affect Other: Abd: fundus firm, nontender Ext: nontender DS: Data Data Completed and Pending Labs on day of discharge: Labs from last 24 hours 12/31/21 03:14 RPR Non-reactive Discharge Plan Discharge Attending physician on discharge: Fiona Bishop Discharging Clinician: Layne Zhang Anticipated Discharge Date/Time: 01/02/22 09:46 Patient Disposition: Home, Self-Care Activity: no straining and pelvic rest Diet: regular Discharge Instructions: Pelvic rest for 4-6 weeks. May take over the counter Ibuprofen or Tylenol for pain. Call if saturating more than a pad an hour, leg redness, pain and swelling, temperature>100.4. No strenuous activity. Patient Instructions: Antibiotic Form Stand Alone Forms: General Discharge Information Follow-up/Referrals: Fiona Bishop MD [Physician] - Call for Appointment Discharge Medications: Continued Zyrtec 10 mg capsule 10 mg PO DAILY PRN (Reason: Allergic Symptoms) cholecalciferol (vitamin D3) 50 mcg (2,000 unit) capsule 50 mcg PO DAILY prenat.vits,char,dyi-[id number] Tablet 1 tablet PO DAILY ferrous sulfate 325 mg (65 mg iron) tablet 325 mg PO DAILY buspirone 5 mg tablet See Rx Instructions .ROUTE .COMPLEX Qty: 60 2RF Dose Instruction: TAKE 1 TABLET BY MOUTH TWICE DAILY NEEDED FOR ANXIETY Rx Instructions: TAKE 1 TABLET BY MOUTH TWICE DAILY NEEDED FOR ANXIETY Date of admission: 12/31/21 02:46 Primary Care Provider: Mei Garcia Admitting Provider: Fiona Bishop Attending physician on admission: Fiona Bishop Condition: Stable
[2022-01-02 14:50] VITALS: BP 118/62; PULSE 84; RESP 18; TEMP 37; O2SAT 100
--- NOTE | 2022-01-02 15:53 | PC.NURSE ---
[id number] Patient viewed the discharge video Mother & Baby Care, The First Two Weeks . Patient was given the opportunity and encouraged to ask questions. Patient verbalized understanding of information shared and has been given the mother/baby guide for home reference.
[2022-01-03 10:45] VITALS: BP 115/73; PULSE 84; RESP 20; TEMP 37.3; O2SAT 99
== END 2022-01-02 13:55 | disposition home or self-care (01) | DRG 807 ==
LOC: ANHLDR 03:25 → ANHOB2 01-02 09:48 → ANHLDR 01-04 12:43 → ANHOB2 01-04 12:43
PROVIDERS: Student in an Organized Health Care Education/Training Program; Admitting Provider Obstetrics & Gynecology; PCP Nurse Practitioner Family; Visit Provider Obstetrics & Gynecology
DX: O43.123 Velamentous insertion of umbilical cord, third trimester (principal); Z37.0 Single live birth; D25.9 Leiomyoma of uterus, unspecified; O36.63X0 Maternal care for excessive fetal growth, third trimester, not applicable or unspecified; O99.344 Other mental disorders complicating childbirth; F41.9 Anxiety disorder, unspecified; O76 Abnormality in fetal heart rate and rhythm complicating labor and delivery; O70.0 First degree perineal laceration during delivery; O42.92 Full-term premature rupture of membranes, unspecified as to length of time between rupture and onset of labor; Z3A.38 38 weeks gestation of pregnancy
CPT/HCPCS: 36415; 84112; 85014; 85018; 85025; 86592; 86850; 86900; 86901; A9270; J0290; J2590; J2795; J7030; J7120

== ENCOUNTER 2022-05-28 00:34 | Emergency (ER) | payer OTHER, SELFPAY ==
[2022-05-28] MEDS: ACETAMINOPHEN 500 MG TABLET 1000 MG PO (01:11)
[2022-05-28] MEDS: IBUPROFEN 400 MG TABLET 800 MG PO (01:11)
[2022-05-28] MEDS: ONDANSETRON INJ 4 MG/2 ML VIAL IV PUSH (01:12)
[2022-05-28] MEDS: SODIUM CHLORIDE 0.9% IV 1,000 ML 999 ML IV CONT (01:13)
--- NOTE | 2022-05-28 01:33 | ED.GENADULT ---
HPI - General Adult General Chief complaint: Nausea/Vomiting/Diarrhea Stated complaint: abd pain, nausea, vomiting, headache Time Seen by Provider: 05/28/22 00:51 History of Present Illness HPI narrative: this is a 36-year-old female presenting ED with nausea and vomiting. Patient was diagnosed with a home COVID test on 05/24. Since then she has been doing well until today when she began to have nausea vomiting headaches. Patient was unable to keep down water and then came to the emergency department. the patient denies fever, chills, chest pain, difficulty breathing, abdominal pain, diarrhea or urinary symptoms. The goal of today's visit is to get help with her nausea. Related Data Home Medications Medication Instructions Recorded Confirmed prenat.vits,char,ntb-fspd-kxgrw 1 tablet PO DAILY 05/13/20 05/17/22 cholecalciferol (vitamin D3) 50 50 mcg PO DAILY 05/31/20 05/17/22 mcg (2,000 unit) capsule cetirizine 10 mg capsule (Zyrtec) 10 mg PO DAILY PRN Allergic 06/07/21 05/17/22 Symptoms ferrous sulfate 325 mg (65 mg 325 mg PO DAILY 06/14/21 05/17/22 iron) tablet Allergies Allergy/AdvReac Type Severity Reaction Status Date / Time No Known Allergies Allergy Verified 05/28/22 00:35 PMFSH Past Medical History Medical History Acne (~2014) Anxiety FABIAN (generalized anxiety disorder) (~2014) Uterine fibroid (~2013) Surgical History Surgical History History of laparotomy (~06/18/13) ~ 15 cm fibroid removed while in [place] Vaginal delivery (~12/31/21) Family History Family History Father Hypertension Diabetes mellitus Social History Social History Social History: caffeine- occasionally Smoking status: Never smoker Second hand tobacco smoke exposure: No Alcohol intake: never Substance use: never Lack of Transportation: No Current Housing: I Have Housing Concerned About Future Housing: No Difficulty Paying Gas/Electric Bills: No Difficulty Paying for Meds: No Currently Unemployed: No Education: Master's Degree or Higher Difficulty w/ Childcare or Family Care: No Living arrangements: alone 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 well-appearing. Polite during the interview Head: atraumatic. EYES: EOMI, NOSE: Atraumatic NECK: Trachea midline RESPIRATORY: No increased rate of breathing CTAB CARDIOVASCULAR: RRR, no peripheral edema ABDOMINAL: Non-distended MUSCULOSKELETAl: No obvious deformities NEURO: Alert. Moving 4/4 extremities SKIN:: Warm, dry. Normal color PSYCHIATRIC: Normal affect Medical Decision Making MDM Narrative Medical decision making narrative: -Presentation: 36-year-old female presenting with nausea vomiting and COVID-19 infection -DDX includes but is not limited to: viral syndrome, COVID-19/flu, gastroenteritis -Co-morbidities complicating care: anxiety -Social determinants of health: patient lives at home with her and children -External Chart Review: none -Hx from independent Sources: none -Discussion of Management/Consultants: none -Independent interpretation of studies: laboratory studies were within normal limits. Dx tests considered but not ordered: Non -Procedures: none -Interventions: 1 L of normal saline, Zofran 4 mg IV, Motrin 800 mg p.o., Tylenol 1000 mg p.o. -Shared decision making / Disposition: upon re-evaluation the patient says that she feels much better. She is no longer nauseous. I discussed admission versus discharge the patient is comfortable being discharged home with outpatient management. She has been given return precautions if she de
[2022-05-28 01:36] LABS: Appearance Urine Clear (Clear); Bilirubin Urine Negative (Negative); Blood Urine 2+ (Negative); Color Urine Yellow (Yellow); Glucose Urine UA Negative (Negative); Ketones Urine Negative (Negative); Leukocyte Esterase Ur Trace LEU/UL (Negative); Nitrate Urine Negative (Negative); Protein Urine Negative (Negative); Specific Grav Ur 1.025 (1.001-1.035); Urobilinogen Urine 0.2 mg/dL (<2.0); pH Urine 5.5 (5.0-9.0)
[2022-05-28 01:41] LABS: Bacteria Urine Trace /hpf; Mucus Urine Rare /lpf; RBC Urine 21-50 /hpf (0-2); Squamous Epithelial Cell Urine Few /hpf (Few)
[2022-05-28 01:42] LABS: Add Urine Microscopic? YES
[2022-05-28 01:45] LABS: Alanine Aminotransferase 21 U/L (6-35); Albumin Level 4.2 g/dL (3.5-5.1); Alkaline Phosphatase 79 U/L (38-126); Anion Gap 7 mmol/L (8-16); Aspartate Amino Transferase 21 U/L (14-36); Bilirubin,Total 0.4 mg/dL (0.2-1.3); Blood Urea Nitrogen 16 mg/dL (7-17); Calcium 8.7 mg/dL (8.4-10.2); Carbon Dioxide 27 mmol/L (22-30); Chloride 104 mmol/L (98-107); Estimated CRCL calculation 109 ml/min; Estimated Glomerular Filt Rate > 60; Glucose 89 mg/dL (65-110); Lipase 56 U/L (23-300); Magnesium 1.9 mg/dL (1.6-2.3); Potassium 3.4 mmol/L (3.4-5.0); Sodium 138 mmol/L (137-145)
[2022-05-28 02:04] VITALS: BP 122/99; PULSE 64; RESP 15; TEMP 36.9; O2SAT 98
[2022-05-28 02:15] LABS: Influenza A QL RT-PCR Negative (Negative); Influenza B QL RT-PCR Negative (Negative); RSV RNA, RT-PCR Negative (Negative); SARS-CoV-2 RNA PCR Positive
== END 2022-05-28 05:09 | disposition home or self-care (01) ==
PROVIDERS: Emergency Provider Emergency Medicine; PCP Family Medicine
DX: U07.1 COVID-19 (principal); R11.2 Nausea with vomiting, unspecified; F41.1 Generalized anxiety disorder; R82.998 Other abnormal findings in urine
CPT/HCPCS: 36415; 80053; 81001; 81025; 83690; 83735; 87086; 87637; 96361; 96374; 99284; A9270; J2405; J7030

== ENCOUNTER 2022-07-31 08:00 | Outpatient (NON) | payer OTHER, SELFPAY | END 2022-07-31 08:01 | disposition home or self-care (01) | LOC: ANHLAB 08-02 11:37 | PROVIDERS: PCP Family Medicine; Visit Provider Nurse Practitioner | DX: D49.2 Neoplasm of unspecified behavior of bone, soft tissue, and skin (principal) | CPT/HCPCS: 88305 ==

== ENCOUNTER → 2023-02-16 10:22 | Outpatient (CLI) | payer OTHER, SELFPAY ==
--- NOTE | ~2023-02-16 | US_ITS ---
Pelvic ultrasound. Clinical History: First trimester , establish dates and viability Technique: Realtime transabdominal and transvaginal scanning of the pelvis was performed. Color flow Doppler and Doppler spectral analysis were performed. Findings: The uterus is anteverted, and contains an intrauterine gestation. Right-sided fundal fibroi d measures 5.5 x 3.6 x 5.5 cm. Additional smaller fibroids are present. [place]-rump length of 3.1 cm c orresponds to an estimated gestational age of 10 weeks 0 days. heart rate is 171 bpm. The right ovary measures 2.4 x 2.5 x 3.0 cm. No significant right ovarian or adnexal mass is seen. The left ovary measures 3.1 x 2.0 x 3.7 cm. No significant left ovarian or adnexal mass is seen. There is no evidence of free fluid in the cul de sac. Impression: Live intrauterine gestation with estimated gestational age of 10 weeks 0 days. heart rate is 17 1 bpm. Uterine fibroids, as detailed above. Reviewed, dictated and finalized at location . Impression: Live intrauterine gestation with estimated gestational age of 10 weeks 0 days. heart rate is 171 bpm. Uterine fibroids, as detailed above.
== END ==
PROVIDERS: PCP Registered Nurse; Visit Provider Registered Nurse
DX: Z36.9 Encounter for antenatal screening, unspecified (principal); Z3A.00 Weeks of gestation of pregnancy not specified; D25.9 Leiomyoma of uterus, unspecified
CPT/HCPCS: 76801

== ENCOUNTER 2023-09-07 06:11 | Inpatient (IN) | payer OTHER, SELFPAY ==
[2023-09-07] VITALS (114 sets, daily range): BP systolic 105–146; BP diastolic 36–110; PULSE 66–92; RESP 18; TEMP 36.4–37.2; O2SAT 95–100; BMI 34.3
--- NOTE | 2023-09-07 06:48 | LDADM ---
This patient, Dari Durán, was admitted to Labor/Delivery/Recovery 107 on 09/07/23 at 06:11. Plans for labor, pain management and were discussed with patient. Patient/family oriented to hospital policies and general routines including ID bracelet, bed and alarms, visiting hours, pain management, procedures, bathroom and other care routines, personal items, smoking policy, room service/diet and guest tray routines, security routines, and visiting hours. Patient/Family are encouraged to report perceived risks to care and to ask questions if they do not understand what they are told or what they should do. See OBIX for further documentation.
[2023-09-07 07:08] LABS: Basophils Percent Auto 0.4 % (0.2-1.2); Eosinophils Absolute Auto 0.1 K/mm3 (0-0.3); Eosinophils Percent Auto 1.1 % (0-4.4); Hematocrit 35.2 % (37.0-47.0); Hemoglobin 11.2 g/dL (12.0-15.0); Immature Granulocyte Absolute 0.04 K/mm3 (0.00-0.031); Immature Granulocyte Percent A 0.6 % (0-0.5); Lymphocytes Absolute Auto 1.23 K/mm3 (0.9-3.2); Lymphocytes Percent Auto 17.6 % (18.3-44.2); Mean Corpuscular HGB Conc 31.8 g/dl (32-36); Mean Corpuscular Hemoglobin 30.2 pg (26-34); Mean Corpuscular Volume 94.9 fl (80-100); Mean Platelet Volume 11.3 fl (7.4-10.4); Monocytes Absolute Auto 0.5 K/mm3 (0.1-0.6); Neutrophils Absolute Auto 5.1 K/mm3 (1.3-6.7); Neutrophils Percent Auto 73.3 % (45.5-73.1); Platelet Count Result 149 k/mm3 (150-375); Red Blood Count 3.71 M/mm3 (4.2-5.4); Red Cell Distribution Width 14.1 % (11.5-14.5)
[2023-09-07] MEDS: LACTATED RINGERS 1,000 ML 125 ML IV CONT (07:12)
[2023-09-07] MEDS: OXYTOCIN 30 UNITS/NS 500 ML 30 UNITS/500 ML BAG IV CONT (07:13)
[2023-09-07 11:19] LABS: Rapid Plasma Reagin Non-Reactive (NonReactive)
--- NOTE | 2023-09-07 12:50 | PM.IMHP ---
H&P: HPI History of Present Illness Date/Time: 09/07/23 12:50 Chief Complaint: Induction of labor Narrative: 37 /o at 39 weeks admitted for [facility]. PNC significant for AMA, she had normal NIPT. Has had normal surveillance testing. She also has a nonobstructive fibroid uterus. She has a history of myomectomy of pedunculated fibroid. She also has h/o marginal/vs left lateral placental insertion. Serial growth ultrasounds normal. H/o anxiety stable on Lexapro. She has been informed of option of induction of labor and the induction process and risk and benefits versus spontaneous labor and she has opted for induction of labor. Review of Systems Review of Systems: All systems reviewed & are unremarkable except as noted in HPI and below Constitutional: Constitutional: Reports no additional constitutional complaints and Denies headache(s) Eyes: Eyes: Denies spots in vision ENT: Reports system reviewed and no additional complaints, except as documented and Denies headache(s) Cardiovascular: Cardiovascular: Denies chest pain and Denies dyspnea Respiratory: Respiratory: Denies dyspnea Gastrointestinal: Gastrointestinal: Reports no additional gastrointestinal complaints Genitourinary: Genitourinary: Reports amenorrhea Musculoskeletal: Musculoskeletal: Reports no additional musculoskeletal complaints Integumentary/Breasts: Skin/Breast: Denies breast mass and Denies rash Neurologic: Denies headache(s) Psychiatric: Psychiatric: Reports no additional psychiatric complaints [facility] Past Medical History Medical History Acne (~2014) Anxiety FABIAN (generalized anxiety disorder) (~2014) Perioral dermatitis Uterine fibroid (~2013) Surgical History Surgical History History of laparotomy (~06/18/13) ~ 15 cm fibroid removed while in [place] Vaginal delivery (~12/31/21) Family History Family History Father Hypertension Diabetes mellitus Social History Social History Social History: caffeine- occasionally Smoking status: Never smoker Second hand tobacco smoke exposure: No Alcohol intake: never Substance use: never Do You Feel Safe in your Home?: Yes Lack of Transportation: No Lack of Food: Never True Current Housing: I Have Housing Concerned About Future Housing: No Difficulty Paying Gas/Electric Bills: No Difficulty Paying for Meds: No Currently Unemployed: No Education: Master's Degree or Higher Difficulty w/ Childcare or Family Care: No Living arrangements: with family Occupation/Education: occupation 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 Gender identity (if verbalized by the patient): Female Sexual Orientation (if Verbalized by the Patient): Straight or Heterosexual Spiritual care concerns: No Meds Home Medications and Allergies Home Medications Medication Instructions Recorded Confirmed Type prenat.vits,char,pxf-jnbi-hmrha 1 tablet PO DAILY 05/13/20 09/07/23 History aspirin 81 mg tablet,delayed 81 mg PO DAILY 05/25/23 09/07/23 History release (Adult Low Dose Aspirin) ferrous sulfate 325 mg (65 mg 325 mg PO DAILY 05/25/23 09/07/23 History iron) tablet (FeroSul) escitalopram oxalate 20 mg tablet 40 mg PO DAILY 07/03/23 09/07/23 History (Lexapro) nystatin-triamcinolone 100,000 1 applic topical BID #30 grams 09/04/23 09/07/23 Rx unit/g-0.1 % topical cream nystatin 100,000 unit/gram topical 1 applic topical BID #30 grams 09/06/23 09/07/23 Rx powder Allergies Allergy/AdvReac Type Severity Reaction Status Date / Time No Known Allergies Allergy Verified 09/07/23 06:54 Vital Signs Vital Signs - 24 hr 09/07/23 06:34 09/07/23 06:45 09/07/23 07:00 Temperature Pulse Rate 84 89 85 Blood Pressure 134/68 124/7
--- NOTE | 2023-09-07 13:08 | PM.OBPNVD ---
OB - PN: Subj Subjective Date/time seen: 09/07/23 0940 Interval history: FHT 135, cat 1, cervix 3/60/-2 AROM clear. Continue pitocin. OB - PN: Obj Data Labs 09/07/23 06:31 Labs: Laboratory Results - last 24 hr 09/07/23 06:31 WBC 7.0 RBC 3.71 L Hgb 11.2 L Hct 35.2 L MCV 94.9 MCH 30.2 MCHC 31.8 L RDW 14.1 Plt Count 149 L MPV 11.3 H Immature Gran % (Auto) 0.6 H Neut % (Auto) 73.3 H Lymph % (Auto) 17.6 L [place] % (Auto) 7.0 Eos % (Auto) 1.1 Baso % (Auto) 0.4 Lymph # (Auto) 1.23 [place] # (Auto) 0.5 Eos # (Auto) 0.1 Baso # (Auto) 0.0 Abs Immat Gran (auto) 0.04 H Absolute Neuts (auto) 5.1 Absolute Nucleated RBC 0.000 Nucleated RBC % 0.0 RPR Non-reactive Blood Type O Positive Antibody Screen Negative OB - PN A/P Time Spent With Patient Time: Total time spent is greater than 50% in coordination of care (as documented) at patient's floor/unit and/or counseling patient:
--- NOTE | 2023-09-07 15:03 | WPDANESEPP ---
Anes - Eval Pre Procedure Procedure: labor epidural Date/Time: 09/07/23 15:03 Preop Diagnosis: labor pain Pre Op Diagnosis: Induction of Labor Patient Data Age: 37 Gender: F Height: 1.6 m Weight: 88 kg Last Vital Signs Temp 36.8 C 09/07/23 13:23 Pulse 77 09/07/23 15:01 BP 135/80 09/07/23 15:01 O2 Del Method Room Air 09/07/23 06:46 Allergies Allergy/AdvReac Type Severity Reaction Status Date / Time No Known Allergies Allergy Verified 09/07/23 06:54 Home Medications Medication Instructions Recorded Confirmed Type prenat.vits,char,oes-pkwh-rrsyn 1 tablet PO DAILY 05/13/20 09/07/23 History aspirin 81 mg tablet,delayed 81 mg PO DAILY 05/25/23 09/07/23 History release (Adult Low Dose Aspirin) ferrous sulfate 325 mg (65 mg 325 mg PO DAILY 05/25/23 09/07/23 History iron) tablet (FeroSul) escitalopram oxalate 20 mg tablet 40 mg PO DAILY 07/03/23 09/07/23 History (Lexapro) nystatin-triamcinolone 100,000 1 applic topical BID #30 grams 09/04/23 09/07/23 Rx unit/g-0.1 % topical cream nystatin 100,000 unit/gram topical 1 applic topical BID #30 grams 09/06/23 09/07/23 Rx powder Laboratory Tests 09/07/23 06:31 WBC 7.0 K/mm3 (4.5-10.0) RBC 3.71 L M/mm3 (4.2-5.4) Hgb 11.2 L g/dL (12.0-15.0) Hct 35.2 L % (37.0-47.0) MCV 94.9 fl (80-100) MCH 30.2 pg (26-34) MCHC 31.8 L g/dl (32-36) RDW 14.1 % (11.5-14.5) Plt Count 149 L k/mm3 (150-375) MPV 11.3 H fl (7.4-10.4) Immature Gran % (Auto) 0.6 H % (0-0.5) Neut % (Auto) 73.3 H % (45.5-73.1) Lymph % (Auto) 17.6 L % (18.3-44.2) [place] % (Auto) 7.0 % (2.6-8.5) Eos % (Auto) 1.1 % (0-4.4) Baso % (Auto) 0.4 % (0.2-1.2) Lymph # (Auto) 1.23 K/mm3 (0.9-3.2) [place] # (Auto) 0.5 K/mm3 (0.1-0.6) Eos # (Auto) 0.1 K/mm3 (0-0.3) Baso # (Auto) 0.0 K/mm3 (0.0-0.1) Abs Immat Gran (auto) 0.04 H K/mm3 (0.00-0.031) Absolute Neuts (auto) 5.1 K/mm3 (1.3-6.7) Absolute Nucleated RBC 0.000 K/mm3 (0.0-0.012) Nucleated RBC % 0.0 % (0.0-0.2) RPR Non-reactive (NonReactive) Blood Type O Positive Antibody Screen Negative Patient hx anesthesia problems: none Family hx anesthesia problems: none Results Review: All pre-operative results and documents have been reviewed as part of the pre-operative evaluation. [facility] Past Medical History Medical History Acne (~2014) Anxiety FABIAN (generalized anxiety disorder) (~2014) Perioral dermatitis Uterine fibroid (~2013) Surgical History Surgical History History of laparotomy (~06/18/13) ~ 15 cm fibroid removed while in [place] Vaginal delivery (~12/31/21) Family History Family History Father Hypertension Diabetes mellitus Social History Social History Social History: caffeine- occasionally Smoking status: Never smoker Second hand tobacco smoke exposure: No Alcohol intake: never Substance use: never Do You Feel Safe in your Home?: Yes Lack of Transportation: No Lack of Food: Never True Current Housing: I Have Housing Concerned About Future Housing: No Difficulty Paying Gas/Electric Bills: No Difficulty Paying for Meds: No Currently Unemployed: No Education: Master's Degree or Higher Difficulty w/ Childcare or Family Care: No Living arrangements: with family Occupation/Education: occupation 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
[2023-09-07] MEDS: OXYTOCIN 30 UNITS/NS 500 ML 30 UNITS/500 ML BAG 125 UNITS IV CONT (18:11)
--- NOTE | 2023-09-07 18:18 | PM.OBPRVD ---
OB - Vaginal Delivery Note Procedure Delivery date: 09/07/23 Events: Other (AMA, marginal placenta) Induction method: Per Pitocin Protocol Delivery augmentation: Rupture of Membranes Delivery monitor: External FHT Route of delivery: Laceration Description: Perineal - 1st Degree Delivery repair: vicryl (3.0 vicryl) Specimen: Yes (placenta and cord) Quantitative Blood Loss (ml): 200 Anesthesia type: Epidural Disposition: Floor Complications: No immediate complications Narrative: She was admitted for [facility] with Pitocin. She had AROM clear. She progressed to active labor. She delivered a female . AFSANEH, left compound hand presentation. Terminal meconium noted. Infant placed on maternal abdomen and then sent to warmer. Cord gases and cord blood obtained. Pitocin started. Placenta delivered spontaneously. Marginal cord insertion noted. She sustained a first degree perineal laceration repaired with 3.0 vicryl. Uterine tone normal. Baby Date of : 09/07/23 Time of : 17:41 Weeks of gestation at delivery: 39 Infant gender: Female presentation: vertex position: Right Occiput Anterior Placenta delivery description: Spontaneous Cord Vessel Description: 3 Vessels
[2023-09-07] MEDS: WITCH HAZEL 40 PADS 1 PAD TOPICAL (20:22)
[2023-09-07] MEDS: BENZOCAINE 20% AER SPR (*SP) 56 GM CAN 1 SPRAY TOPICAL (20:28)
[2023-09-08 03:55] VITALS: BP 110/56; PULSE 80; RESP 18; TEMP 36.5; O2SAT 97
[2023-09-08] MEDS: ACETAMINOPHEN 325 MG TABLET 650 MG PO (04:10)
[2023-09-08 05:06] LABS: Hematocrit 34.3 % (37.0-47.0); Hemoglobin 11.1 g/dL (12.0-15.0)
[2023-09-08 07:50] VITALS: BP 121/70; PULSE 86; RESP 16; TEMP 36.9; O2SAT 98
[2023-09-08] MEDS: MULTIVIT/MIN/PREN/FOL AC/IRON TABLET 1 TAB PO (08:06)
--- NOTE | 2023-09-08 09:38 | PM.OBPNVD ---
OB - PN: Subj Subjective Date/time seen: 09/08/23 09:38 Interval history: She states she feels well. Attempting breast feeding. Patient comments: pain well controlled, tolerating diet and other (Decreasing lochia.) [place] baby status: doing well OB - PN: Obj Data Labs 09/08/23 03:08 Labs: Laboratory Results - last 24 hr 09/07/23 09/08/23 06:31 03:08 Hgb 11.1 L Hct 34.3 L RPR Non-reactive OB - PN A/P Assessment and Plan (1) Vaginal delivery: Onset Date: ~12/31/21 Code(s): O80 - Encounter for full-term uncomplicated delivery Status: Acute Assessment and Plan: She is doing well. She request discharge to home. Baby has been cleared to be discharged at 24 hours. Discharge precautions discussed. Will discharge at 24 hours. Plan day: 1 Plan: discharge home Comments: Patient doing well. Time Spent With Patient Time: Total time spent is greater than 50% in coordination of care (as documented) at patient's floor/unit and/or counseling patient: Time with patient: less than 15 minutes Exam Psych: Affect: normal affect Other: Abd: fundus firm below umbilicus, nontender Perineum: healing Ext: nontender
[2023-09-08 16:40] VITALS: BP 127/79; PULSE 63; RESP 16; TEMP 36.6; O2SAT 98
[2023-09-08] MEDS: IBUPROFEN 600 MG TABLET PO (16:45)
[2023-09-10 16:01] VITALS: BP 129/78; PULSE 78; RESP 18; TEMP 37.2; O2SAT 100
--- NOTE | 2023-09-26 17:19 | PM.OBDSVD ---
DS: Admitting Diagnosis Discharge Date 09/08/23 Admitting Diagnosis Medical induction of labor DS: Discharge Diagnosis Discharge Diagnosis (1) Vaginal delivery: Onset Date: ~12/31/21 Code(s): O80 - Encounter for full-term uncomplicated delivery Status: Acute OB - DS: Summary Hospital Course Hospital Course: She was admitted for medical induction of labor. She had uncomplicated vaginal delivery. She did well . Baby did well . She requested discharge to home on day 1. OB Procedures : Ultrasound OB Procedures Intrapartum: Spontaneous Vag Delivery OB Procedures: : None Peripartum Data Delivery Method: Natural Vaginal Laceration Description: Perineal - 1st Degree complications: none Status at Discharge Functional status at discharge: independent ambulation Time Spent with Patient Time attestation: Total time spent providing and/or coordinating discharge services: Exam Const: General: cooperative Orientation/consciousness: oriented to person, oriented to place and oriented to time HENMT: Face/Nose/Sinus: Normal external nose present Eyes: General: appearance normal, both eyes and all related structures Resp: Effort & Inspection: normal respiratory effort GI: Inspection: normal to inspection Skin: General skin exam: normal color Neuro: General: oriented to person, oriented to place and oriented to time Extrem: General: normal to inspection and no calf tenderness Psych: Appearance: grossly normal Mental Status: mental status grossly normal DS: Data Data Completed and Pending Completed studies during hospitalization: Pending at discharge 09/07/23 17:48 Surgical [PTH] Routine Discharge Plan Discharge Attending physician on discharge: Dima La Consulting providers: Rose Jones Discharging Clinician: Dima La Patient Disposition: Home, Self-Care Activity: may shower and pelvic rest Diet: regular Discharge Instructions: Education: Mom and Baby Guide Given to: Mother Follow-Up: Call your delivering provider's office for an appointment to be seen in: 6 Weeks Mom and baby should come to the [facility] for the follow-up appointment. Appointment Date/Time: September 10, 2023 at 3:30 pm Call [phone] if you are unable to keep your appointment time. BREAST CARE: * Wear a snug supportive bra. * For engorgement discomfort: Breast Feeding: * Apply warm moist washcloths * Express milk as needed to relieve engorgement * Wear loose clothing Bottle Feeding: * May apply ice packs * For sore nipples: * Identify correct latch-on * Apply warm moist washcloths before and after nursing * Air dry nipples after nursing * May apply Lans[place] cream to nipples EPISIOTOMY/PERINEAL CARE: * Until bleeding stops, use your lisa bottle after urinating * Change your pad frequently throughout the day * You may take sitz baths several times a day (fill your bathtub with warm water and soak for 20 minutes.) Do NOT bathe in the water * No tub baths until seen by your physician - You may shower ACTIVITY: * Rest as much as possible. * Do not exercise or lift anything heavier than your baby (such as laundry or other children.) * Avoid stairs or driving as much as possible. * Do not put anything into the vagina. No douching, tampons, or sexual activity until seen by physician. NOTIFY PHYSICIAN IF YOU HAVE ANY QUESTIONS OR IF ANY OF THE FOLLOWING SYMPTOMS OCCUR: * If your episiotomy or incision becomes red, swollen, or more painful than what you have experienced in the hospital. * If your vaginal bleeding becomes foul smelling. * If your vaginal bleeding becomes more heavy than a period or if your bleeding changes from pink to bright red. However, you may pass an occasional walnut-s
== END 2023-09-08 18:10 | disposition home or self-care (01) | DRG 807 ==
LOC: ANHLDR 06:15 → ANHOB2 20:58
PROVIDERS: Admitting Provider Obstetrics & Gynecology; PCP Family Medicine; Visit Provider Obstetrics & Gynecology
DX: O32.6XX0 Maternal care for compound presentation, not applicable or unspecified (principal); Z37.0 Single live birth; O43.123 Velamentous insertion of umbilical cord, third trimester; O99.344 Other mental disorders complicating childbirth; F41.9 Anxiety disorder, unspecified; O70.0 First degree perineal laceration during delivery; O77.0 Labor and delivery complicated by meconium in amniotic fluid; Z3A.39 39 weeks gestation of pregnancy
CPT/HCPCS: 36415; 85014; 85018; 85025; 86592; 86850; 86900; 86901; 88307; A9270; J2590; J2795; J7120

== ENCOUNTER 2024-08-20 10:13 | Outpatient (CLI) | payer OTHER, SELFPAY ==
--- NOTE | ~2024-08-20 | US_ITS ---
EXAMINATION: US thyroid DATE: 08/20/2024 10:24 INDICATION: Thyrotoxicosis TECHNIQUE: Multiple ultrasound images of the thyroid were obtained. COMPARISON: None. FINDINGS: The right thyroid lobe measures 5.7 x 2.6 x 1.4 cm. The left thyroid lobe measures 5.0 x 1.6 x 1.4 c m. The thyroid isthmus measures 4 mm thickness. No discrete nodules identified. There is normal echot exture and echogenicity throughout the thyroid gland. There is diffuse increased vascular flow throug hout the thyroid which could be seen with thyroiditis. IMPRESSION: 1. Diffuse increased vascular flow throughout the otherwise normal-appearing thyroid which can be see n with thyroiditis. Reviewed, dictated and finalized at location A. IMPRESSION: 1. Diffuse increased vascular flow throughout the otherwise normal-appearing th yroid which can be seen with thyroiditis.
== END 2024-08-20 10:14 | disposition home or self-care (01) ==
PROVIDERS: PCP Family Medicine; Visit Provider Nurse Practitioner Family
DX: E05.90 Thyrotoxicosis, unspecified without thyrotoxic crisis or storm (principal)
CPT/HCPCS: 76536